=== PATIENT | male | born 1950 ===

== ENCOUNTER 2018-09-06 02:30 | Emergency (ER) | payer SELFPAY ==
[~2018-09-06] VITALS: Ht 177.8 cm; Wt 104.3 kg
[~2018-09-06 02:30] MED LIST: ACET500 PO; ALBU90OI INH; IPRAOI INH; MOM PO; MORPHINE PAIN PUMP; NAPR250 PO; SIMV40 PO; THEO200ERB PO; VERA240ERB PO
== END 2018-09-06 05:38 | disposition home or self-care (01) ==
LOC: ER 02:30
DX: R06.02 Shortness of breath (principal); R09.89 Other specified symptoms and signs involving the circulatory and respiratory systems; Z88.5 Allergy status to narcotic agent; Z79.899 Other long term (current) drug therapy; Z79.891 Long term (current) use of opiate analgesic
CPT/HCPCS: 71046; 94640; 99283-25